=== PATIENT | male | born 1955 | race Caucasian/White ===

== ENCOUNTER 2024-03-23 13:29 | Outpatient (CLI) | payer MEDICARE, SELFPAY ==
--- NOTE | ~2024-03-23 | CT_ITS ---
EXAMINATION: CT lung screening DATE: 03/23/2024 13:54 INDICATION: Nicotine Dependence TECHNIQUE: Computed tomography (CT) of the chest was performed without intravenous contrast. Addition al 3D reconstructions utilizing coronal maximum intensity projection (MIP) were performed. Automated exposure control and iterative reconstruction technique were employed. The dose-length product was 36 6.40 mGy-cm. COMPARISON: None FINDINGS: Mild emphysema. Couple small bilateral calcified pulmonary nodules along with a a few calcified media stinal lymph nodes consistent with old granulomatous disease. No other noncalcified pulmonary nodules , pneumonia, pulmonary edema or pleural effusion. Heart size is normal. Minimal atherosclerotic coron brigido artery calcific location. No pericardial effusion. Thoracic aorta is normal in caliber. No pathol ogically enlarged thoracic lymphadenopathy. Diffuse hepatic steatosis. There are multiple diverticula at the visualized splenic flexure of the colon. Moderate thoracic and upper lumbar spondylosis with bridging osteophytes at multiple levels consistent with diffuse idiopathic skeletal hyperostosis (DIS H). IMPRESSION: 1. . Lung-RADS category 1: Negative. Continue annual screening with noncontrast low-dose chest CT in 12 months. Reviewed, dictated and finalized at location A.
== END 2024-03-23 13:30 | disposition home or self-care (01) ==
LOC: CHSIMG 13:35
DX: Z12.2 Encounter for screening for malignant neoplasm of respiratory organs (principal); Z87.891 Personal history of nicotine dependence
CPT/HCPCS: 71271

== ENCOUNTER 2025-05-28 14:06 | Outpatient (CLI) | payer MEDICARE, SELFPAY ==
--- NOTE | ~2025-05-28 | CT_ITS ---
EXAMINATION: CT lung screening DATE: 05/28/2025 14:25 INDICATION: History of nicotine dependence TECHNIQUE: Computed tomography (CT) of the chest was performed without intravenous contrast. The dose-length product was 334.57 mGy-cm. Automated exposure control and iterative reconstruction technique were employed. COMPARISON: 03/23/2024 FINDINGS: Heart size normal. No significant thoracic lymphadenopathy. There is gynecomastia. Fatty infiltration of the liver. No significant pleural or pericardial effusion. There is a new 12 mm left lower lobe nodule. There are calcified granulomas in the lungs. There is a 4 mm left lower lobe nodule. No endobronchial lesions. No focal airspace consolidation. No pneumothorax. Moderate thoracic spondylosis. IMPRESSION: 1. Lung Rads category 4B:. Very suspicious. Recommend further evaluation with pet/CT or percutaneous biopsy. Reviewed, dictated and finalized at location O. IMPRESSION: 1. Lung Rads category 4B:. Very suspicious. Recommend further evaluation with p et/CT or percutaneous biopsy.
--- OUTSIDE RECORDS SUMMARY | 2025-05-28 14:22 | XMS_ITS | Encounter Summary ---
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
--- OUTSIDE RECORDS SUMMARY | 2025-05-28 14:22 | XMS_ITS | Clinical Summary ---
Author Organization [facility] Address [facility] [place] [address] Care Team Providers Care Jewelry Repairer Name Role Phone Zi Wolfe MD Primary Care Provider [phone] Allergies No known active allergies Medications gemfibrozil 600 MG tablet Take 600 mg by mouth daily. Active losartan 50 MG tablet Take 50 mg by mouth daily. 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 Gender Identity Not on file Sexual Orientation Not on file Last Filed Vital Signs Vital Sign Reading Time Taken Comments Blood Pressure 170/87 04/14/2021 10:50 AM CDT Pulse 50 04/14/2021 10:50 AM CDT Temperature 36 C (96.8 F) 04/14/2021 10:50 AM CDT Respiratory Rate 20 04/14/2021 10:50 AM CDT Oxygen Saturation 99% 04/14/2021 10:50 AM CDT Inhaled Oxygen Concentration - - Weight 115.7 kg (255 lb) 04/06/2021 9:17 AM CDT Height 180.3 cm (5' 11) 04/06/2021 9:17 AM CDT Body Mass Index 35.57 04/06/2021 9:17 AM CDT Plan of Treatment Health Maintenance Due Date Last Done Comments Hepatitis C 1971 DTaP, Tdap and Td Vaccines ( 1 - Tdap) 1972 Pneumococcal Vaccine: 50+ Years (1 of 1 - PCV) 2003 Zoster Vaccines (1 of 2) 2003 Annual Medicare Wellness Visit 2018 COVID-19 Vaccine (3 - 2023-2 5 season) 2024 11/19/2020, 10/22/2020 RSV Immunization or 60+ Years (1 - 1-dose 75+ series) 2028 Colorectal Cancer Screening Colonoscopy (10 Years) 04/14/2031 04/14/2021, 04/14/2021 Meningococcal B Vaccine Aged Out No l onger eligible based on patient's age to complete this topic Meningococcal Vaccine Aged Out No aby jim eligible based on patient's age to complete this topic RSV Immunizations Under 20 Months Aged Out No longer eligible b ased on patient's age to complete this topic Procedures Procedure Name Priority Date/Time Associated Diagnosis Comments COLONOSCOPY 04/14/2021 10:15 AM CDT from Last 3 Months or Most Recently Relevant to Health Maintenance Results * COLONOSCOPY (04/14/2021 10:15 AM CDT) Dilan Haynes MD GI PROCEDURE ORDERABLES Final Result from Last 3 Months or Most Recently Relevant to Health Maintenance Insurance Care Teams Jewelry Repairer Relationship Specialty Start Date End Date Zi Wolfe MD [address] [place] [address] PCP - General FAMILY PRACTICE 03/02/21
== END 2025-05-28 14:07 | disposition home or self-care (01) ==
LOC: CHSIMG 14:09
DX: Z12.2 Encounter for screening for malignant neoplasm of respiratory organs (principal); Z87.891 Personal history of nicotine dependence; R91.8 Other nonspecific abnormal finding of lung field
CPT/HCPCS: 71271